=== PATIENT | female | born 1975 | race Caucasian/White ===

== ENCOUNTER 2017-02-03 17:36 | Emergency (ER) | payer SELFPAY ==
[~2017-02-03] VITALS: Ht 154.9 cm; Wt 109.0 kg
[~2017-02-03 17:36] MED LIST: ADVAIR 100-501 EACH IH; ADVAIR 100/501 DISK IH; ADVIL,NUPRIN,M200 MG PO; ALBUTEROL SULF8.5 GM IH; ALBUTEROL17 GM IH; ALPRAZOLAM0.25 MG PO; ANAPROX DS550 M1 PO; ASPIR-LOW81 MG PO; BACTRIM,SEPT1 TABLET PO; BENTYL20 MG PO; BENZONATATE100 MG PO; BUSPAR7.5 MG PO; BUSPIRONE HCL10 MG PO; BUTALB-APAP-CA1 EACH PO; CARAFATE100 MG/ML PO; CIPRO500 MG PO; COLACE100 MG PO; DOXYCYCLINE HY100 M3 PO; ERGOCALCIF50000 UNIT PO; ESTRADIOL1 MG PO; FLEXERIL10 MG PO; FLEXERIL5 MG PO; FLOVENT 11120 INHALA IH; FLOVENT 22120 INHALA IH; HYDROCHLOROTH12.5 M1 PO; HYDROCODON-ACE1 EA11 PO; HYDROCODON-ACE1 EAC7 PO; HYZAAR 50-121 TABLET PO; IBU-200200 MG PO; INDOCIN25 MG PO; KEFLEX500 MG PO; KLOR-CON M2020 MEQ PO; LEVAQUIN500 MG PO; LEVAQUIN750 MG PO; LIPITOR10 MG PO; LISINOPRIL10 MG PO; LO LOESTRIN FE1 EACH; LOPRESSOR50 MG PO; LORTAB 5-325 M1 EACH PO; LUNESTA3 MG; LUNESTA3 MG PO; MEDROL DOSEPAK4 MG PO; MELATONIN3 MG PO; METOPROLOL SUCC50 MG PO; MOTRIN600 MG PO; MOTRIN800 MG PO; MUCUS ER600 MG PO; NAPROSYN500 MG PO; NAPROXEN500 MG PO; NEURONTIN300 MG PO; NITROSTAT0.4 MG SL; NORCO 5/3251 TABLET PO; PERCOCET 5-3251 EACH PO; PERCOCET 5/31 TABLET PO; PHENERGAN-CODE120 ML PO; PREDNISONE20 MG PO; PREDNISONE50 MG PO; PRILOSEC20 MG PO; PROVENTIL,2.5 MG/3 M IH; PROVENTIL17 G1 IH; PROZAC20 MG PO; PROZAC40 MG PO; ROBITUSSIN NIG118 ML PO; SAVELLA12.5 MG PO; SAVELLA50 MG PO; TESSALON PERLE100 MG PO; TOPAMAX100 MG PO; TOPAMAX50 MG PO; TOPIRAMATE50 MG PO; TOPROL XL25 MG PO; TORADOL10 MG PO; TYLENOL WITH C1 EACH PO; ULTRAM50 MG PO; VALIUM2 MG PO; VENTOLIN HFA18 GM IH; VICODIN,LORT1 TABLET PO; VITAMIN D PO; VITAMIN D1000 INTUN PO; XANAX2 MG PO; ZOFRAN ODT4 MG PO; ZOFRAN ODT8 MG PO; [UNRECOGNIZED DRUG - OTHER] PO
[2017-02-03] MEDS ORDERED: FLEXERIL10 MG PO (20:48)
[2017-02-03] MEDS ORDERED: ULTRAM50 MG PO (20:48)
[2017-02-03 21:08] VITALS: BP 142/58
== END 2017-02-03 21:09 | disposition home or self-care (01) ==
LOC: EME 17:36
DX: S40.012A Contusion of left shoulder, initial encounter (principal); S39.012A Strain of muscle, fascia and tendon of lower back, initial encounter; M54.2 Cervicalgia; M25.552 Pain in left hip; W20.8XXA Other cause of strike by thrown, projected or falling object, initial encounter; Y92.512 Supermarket, store or market as the place of occurrence of the external cause; I10 Essential (primary) hypertension; Z90.49 Acquired absence of other specified parts of digestive tract; Z79.890 Hormone replacement therapy
CPT/HCPCS: 72040; 72100; 99281; 99283; J1885

== ENCOUNTER 2017-07-22 17:40 | Inpatient (IN) | payer BC ==
[~2017-07-22] VITALS: Ht 154.9 cm; Wt 11.7 kg
[2017-07-22 19:42] LABS: HEMATOCRIT 38.6 % (36.0-46.0); MCH 28.6 PG (29.0-34.0); MCHC 32.1 G/DL (30.0-36.0); MCV 89.1 FL (83-99); MEAN PLAT.VOLUME 9.8 uM^3 (9.5-12.4); PLATELET COUNT 154 K/uL (156-360); RBC DIS.WIDTH-CV 12.7 % (11.8-14.6); RBC DIS.WIDTH-SD 41.1 % (39-53); RED BLOOD COUNT 4.33 M/uL (3.80-5.20); WHITE BLOOD COUNT 6.6 K/uL (4.1-10.2)
[2017-07-22 19:49] LABS: CHLORIDE 106 mEq/L (99-109); POTASSIUM 3.8 mEq/L (3.7-5.4); SODIUM 140 mEq/L (136-147)
[2017-07-22 19:51] LABS: GLUCOSE 93 mg/dL (70-99)
[2017-07-22 19:52] LABS: ANION GAP 8 MEQ/L (2-14)
[2017-07-22 19:55] LABS: GFR ESTIMATE (CALCULATED) 52 mL/min/; UREA NITROGEN (BUN) 16 mg/dL (9-23)
[2017-07-22 21:59] LABS: INTER. NORMALIZED RATIO 1.1; PROTHROMBIN TIME 11.6 SEC (10.2-12.9)
[2017-07-22 22:01] LABS: PTT 32.5 SEC (25-37)
[2017-07-22 22:05] LABS: Estimated Average Glucose 103 mg/dL (70-123); HEMOGLOBIN A1c (GLYCOHEMOGLOB) 5.2 % HGB (Below 5.7)
[2017-07-22 22:12] LABS: TROP-I INTERPRETATION NEGATIVE; TROPONIN-I < 0.01 ng/mL (0.0-0.30)
[2017-07-22 23:00] LABS: HDL CHOLESTEROL 49 MG/DL (Desirable>=50); LDL CHOLESTEROL 104 mg/dL (Desirable<100); NON-HDL CHOLESTEROL 125 mg/dL (Desirable<160); TOTAL CHOLESTEROL 174 mg/dL (Desirable<200); TRIGLYCERIDES 103 MG/DL (Normal: <150)
[2017-07-23 07:16] LABS: HEMATOCRIT 36.1 % (36.0-46.0); MCH 28.5 PG (29.0-34.0); MCHC 32.4 G/DL (30.0-36.0); MCV 87.8 FL (83-99); MEAN PLAT.VOLUME 9.6 uM^3 (9.5-12.4); PLATELET COUNT 117 K/uL (156-360); RBC DIS.WIDTH-CV 12.7 % (11.8-14.6); RBC DIS.WIDTH-SD 40.1 % (39-53); RED BLOOD COUNT 4.11 M/uL (3.80-5.20); WHITE BLOOD COUNT 5.8 K/uL (4.1-10.2)
[2017-07-23 07:43] LABS: ANION GAP 9 MEQ/L (2-14); CHLORIDE 111 MEQ/L (99-109); SAMPLE HEMOLYSIS CHECK 0; SAMPLE ICTERIC CHECK 0; SAMPLE LIPEMIA CHECK 0; SODIUM 141 MEQ/L (136-147); TOTAL BILIRUBIN 0.4 MG/DL (0.0-1.0)
[2017-07-23 07:49] LABS: ALKALINE PHOSPHATASE 76 IU/L (3-129); GFR ESTIMATE (CALCULATED) > 59 mL/min/; GLUCOSE 86 mg/dL (70-99); UREA NITROGEN (BUN) 13 mg/dL (9-23)
[2017-07-23 08:15] VITALS: BP 125/74
[2017-07-23] MEDS ORDERED: PROZAC20 MG PO (13:15)
[2017-07-23 15:51] VITALS: BP 137/76
[2017-07-23 19:40] VITALS: BP 126/67
[2017-07-23 23:22] VITALS: BP 122/69
[2017-07-24 03:37] VITALS: BP 124/54
[2017-07-24 06:58] LABS: EOSINOPHIL (%) 4.6 % (0-5); EOSINOPHIL COUNT 0.2 K/uL (0-0.3); HEMATOCRIT 34.5 % (36.0-46.0); IMMATURE GRANULOCYTE (%) 0.2 % (0.0-0.7); LYMPHOCYTE COUNT 2.1 K/uL (1.0-2.8); MCH 29.8 PG (29.0-34.0); MCHC 33.3 G/DL (30.0-36.0); MCV 89.4 FL (83-99); MEAN PLAT.VOLUME 9.9 uM^3 (9.5-12.4); MONOCYTE (%) 6.5 % (3-12); MONOCYTE COUNT 0.3 K/uL (0-0.8); NEUTROPHIL (%) 43.8 % (45-76); PLATELET COUNT 127 K/uL (156-360); RBC DIS.WIDTH-CV 12.9 % (11.8-14.6); RED BLOOD COUNT 3.86 M/uL (3.80-5.20); WHITE BLOOD COUNT 4.6 K/uL (4.1-10.2)
[2017-07-24 07:02] LABS: ANION GAP 7 MEQ/L (2-14); CHLORIDE 109 MEQ/L (99-109); GFR ESTIMATE (CALCULATED) 58 mL/min/; GLUCOSE 90 mg/dL (70-99); POTASSIUM 4.2 MEQ/L (3.7-5.4); SAMPLE HEMOLYSIS CHECK 0; SAMPLE ICTERIC CHECK 0; SAMPLE LIPEMIA CHECK 0; SODIUM 140 MEQ/L (136-147); UREA NITROGEN (BUN) 15 mg/dL (9-23)
[2017-07-24 07:13] VITALS: BP 134/67
[2017-07-24] MEDS ORDERED: SUMATRIPTAN SU100 MG PO (13:36)
[2017-07-24] MEDS ORDERED: TOPIRAMATE100 MG PO (13:36)
[2017-07-24] MEDS ORDERED: METOPROLOL SUCC25 MG PO (13:36)
== END 2017-07-24 16:12 | disposition home or self-care (01) | DRG 103 ==
LOC: RME 17:40 → EME 17:40 → EDOF 07-23 04:49 → ENRESERV 07-23 04:58 → 5SOUTH 07-23 05:23 → EDOF 07-23 05:23 → ENRESERV 07-23 05:25 → 5SOUTH 07-23 07:18
PROVIDERS: Hospitalist; Internal Medicine; Physician Assistant
DX: G43.909 Migraine, unspecified, not intractable, without status migrainosus (principal); I10 Essential (primary) hypertension; M79.7 Fibromyalgia; E66.01 Morbid (severe) obesity due to excess calories; R53.1 Weakness; J45.909 Unspecified asthma, uncomplicated; F41.9 Anxiety disorder, unspecified; R29.704 NIHSS score 4; Z68.42 Body mass index [BMI] 45.0-49.9, adult; Z86.73 Personal history of transient ischemic attack (TIA), and cerebral infarction without residual deficits
CPT/HCPCS: 70450; 70490; 70496; 70498; 70551; 71020; 80048; 80053; 80061; 81003; 83036; 84484; 85025; 85027; 85610; 85730; 93005; 93306; 99281; 99285; J1200; J1644; J2270; J2405; J2765; J3010; J7030

== ENCOUNTER 2017-11-03 17:35 | Emergency (ER) | payer BC ==
[~2017-11-03] VITALS: Ht 154.9 cm; Wt 111.4 kg
[~2017-11-03 17:35] MED LIST changes: +METOPROLOL SUCC25 MG PO; +SUMATRIPTAN SU100 MG PO; +TOPIRAMATE100 MG PO
[2017-11-03 18:20] LABS: HEMATOCRIT 39.7 % (36.0-46.0); HEMOGLOBIN 13.2 G/DL (11.9-15.5); MCH 28.7 PG (29.0-34.0); MCHC 33.2 G/DL (30.0-36.0); MCV 86.3 FL (83-99); PLATELET COUNT 159 K/uL (156-360); RBC DIS.WIDTH-CV 12.9 % (11.8-14.6); RBC DIS.WIDTH-SD 40.5 % (39-53); WHITE BLOOD COUNT 8.7 K/uL (4.1-10.2)
[2017-11-03 18:28] LABS: ALBUMIN 4.3 g/dL (3.2-4.8)
[2017-11-03 18:29] LABS: CHLORIDE 108 mEq/L (99-109); POTASSIUM 3.7 mEq/L (3.7-5.4); SODIUM 140 mEq/L (136-147)
[2017-11-03 18:31] LABS: GLUCOSE 93 mg/dL (70-99); TOTAL PROTEIN 7.8 g/dL (6.4-8.3)
[2017-11-03 18:33] LABS: TOTAL BILIRUBIN 0.3 mg/dL (0.0-1.0)
[2017-11-03 18:34] LABS: ALKALINE PHOSPHATASE 88 IU/L (3-129)
[2017-11-03 18:35] LABS: GFR ESTIMATE (CALCULATED) > 59 mL/min/
[2017-11-03 18:36] LABS: AST (GOT) 10 IU/L (2-34); UREA NITROGEN (BUN) 23 mg/dL (9-23)
[2017-11-03 18:37] LABS: ALT (GPT) 10 IU/L (3-49)
[2017-11-03 20:10] LABS: APPEARANCE CLOUDY ((CLEAR)); BILIRUBIN NEGATIVE; BLOOD SMALL; COLOR YELLOW ((YELLOW)); GLUCOSE (STRIP) NEGATIVE; KETONES NEGATIVE; LEUKOCYTES LARGE; NITRITE NEGATIVE; PROTEIN (STRIP) 100; SPECIFIC GRAVITY 1.034 (1.000-1.030); UROBILINOGEN 0.2 MG/DL (0.2-1.0)
[2017-11-03 20:35] LABS: BACTERIA 3+ /HPF; EPITHELIAL CELLS 3+ /HPF; MUCUS NONE SEEN /LPF; UCUL ADDED? YES; WHITE BLOOD CELLS TNTC /HPF (0-5)
[2017-11-03] MEDS ORDERED: KEFLEX500 MG PO (23:29)
[2017-11-04 00:25] VITALS: BP 119/89
== END 2017-11-04 00:25 | disposition home or self-care (01) ==
LOC: RME 17:35 → EME 17:35 → RME 11-04 00:25
DX: N12 Tubulo-interstitial nephritis, not specified as acute or chronic (principal); I10 Essential (primary) hypertension; J45.909 Unspecified asthma, uncomplicated; M79.7 Fibromyalgia; F32.9 Major depressive disorder, single episode, unspecified; Z88.6 Allergy status to analgesic agent
CPT/HCPCS: 80053; 81003; 84702; 85027; 87077; 87086; 87186

== ENCOUNTER 2018-02-04 22:33 | Emergency (ER) | payer OTHER ==
[~2018-02-04] VITALS: Ht 154.9 cm; Wt 114.4 kg
[2018-02-04 23:12] LABS: HEMATOCRIT 39.7 % (36.0-46.0); MCH 28.8 PG (29.0-34.0); MCHC 32.7 G/DL (30.0-36.0); MCV 87.8 FL (83-99); PLATELET COUNT 159 K/uL (156-360); RBC DIS.WIDTH-CV 13.5 % (11.8-14.6); RBC DIS.WIDTH-SD 43.8 % (39-53); RED BLOOD COUNT 4.52 M/uL (3.80-5.20); WHITE BLOOD COUNT 6.9 K/uL (4.1-10.2)
[2018-02-04 23:25] LABS: ALBUMIN 4.3 g/dL (3.2-4.8); CHLORIDE 109 mEq/L (99-109); POTASSIUM 3.9 mEq/L (3.7-5.4); SODIUM 141 mEq/L (136-147)
[2018-02-04 23:27] LABS: GLUCOSE 105 mg/dL (70-99); TOTAL PROTEIN 7.8 g/dL (6.4-8.3)
[2018-02-04 23:29] LABS: TOTAL BILIRUBIN 0.4 mg/dL (0.0-1.0)
[2018-02-04 23:30] LABS: QUANTITATIVE HCG 5.4 MIU/ML
[2018-02-04 23:31] LABS: ALKALINE PHOSPHATASE 94 IU/L (3-129); GFR ESTIMATE (CALCULATED) > 59 mL/min/
[2018-02-04 23:32] LABS: UREA NITROGEN (BUN) 21 mg/dL (9-23)
[2018-02-04 23:33] LABS: AST (GOT) 14 IU/L (2-34)
[2018-02-04 23:34] LABS: ALT (GPT) 10 IU/L (3-49)
[2018-02-04 23:43] LABS: APPEARANCE CLOUDY ((CLEAR)); BILIRUBIN NEGATIVE; BLOOD MODERATE; COLOR YELLOW ((YELLOW)); GLUCOSE (STRIP) NEGATIVE; KETONES NEGATIVE; LEUKOCYTES LARGE; NITRITE NEGATIVE; PROTEIN (STRIP) 30; SPECIFIC GRAVITY 1.028 (1.000-1.030); UROBILINOGEN 0.2 MG/DL (0.2-1.0)
[2018-02-05] LABS: BACTERIA RARE /HPF; EPITHELIAL CELLS 1+ /HPF; MUCUS TRACE /LPF; RED BLOOD CELLS TNTC /HPF (0-5); UCUL ADDED? YES; WHITE BLOOD CELLS TNTC /HPF (0-5)
[2018-02-05] MEDS ORDERED: KEFLEX500 MG PO (06:18)
[2018-02-05] MEDS ORDERED: NORCO 5/3251 TABLET PO (06:18)
[2018-02-05 06:53] VITALS: BP 110/78
== END 2018-02-05 06:55 | disposition home or self-care (01) ==
LOC: EXP 22:33 → EME 22:33 → EXP 02-05 06:55
DX: N30.01 Acute cystitis with hematuria (principal); M79.7 Fibromyalgia; J45.909 Unspecified asthma, uncomplicated; I10 Essential (primary) hypertension; F32.9 Major depressive disorder, single episode, unspecified; Z90.49 Acquired absence of other specified parts of digestive tract; Z90.710 Acquired absence of both cervix and uterus; Z88.6 Allergy status to analgesic agent
CPT/HCPCS: 74177; 80053; 81003; 83690; 84702; 85027; 87086; 99281; 99284; J0696; J2405; J3010; J7030

== ENCOUNTER 2018-03-25 11:23 | Emergency (ER) | payer OTHER ==
[~2018-03-25] VITALS: Ht 154.9 cm; Wt 97.9 kg
[2018-03-25 11:43] LABS: HEMATOCRIT 39.2 % (36.0-46.0); HEMOGLOBIN 13.1 G/DL (11.9-15.5); MCHC 33.4 G/DL (30.0-36.0); MCV 86.7 FL (83-99); PLATELET COUNT 151 K/uL (156-360); RBC DIS.WIDTH-CV 12.9 % (11.8-14.6); RBC DIS.WIDTH-SD 40.9 % (39-53); RED BLOOD COUNT 4.52 M/uL (3.80-5.20); WHITE BLOOD COUNT 5.9 K/uL (4.1-10.2)
[2018-03-25 11:53] LABS: ALBUMIN 4.1 g/dL (3.2-4.8); CHLORIDE 107 mEq/L (99-109); POTASSIUM 4.1 mEq/L (3.7-5.4); SODIUM 140 mEq/L (136-147)
[2018-03-25 11:56] LABS: GLUCOSE 105 mg/dL (70-99); TOTAL PROTEIN 7.5 g/dL (6.4-8.3)
[2018-03-25 11:58] LABS: TOTAL BILIRUBIN 0.3 mg/dL (0.0-1.0)
[2018-03-25 11:59] LABS: ALKALINE PHOSPHATASE 98 IU/L (3-129); GFR ESTIMATE (CALCULATED) > 59 mL/min/
[2018-03-25 12:00] LABS: UREA NITROGEN (BUN) 10 mg/dL (9-23)
[2018-03-25 12:01] LABS: AST (GOT) 10 IU/L (2-34)
[2018-03-25 12:02] LABS: ALT (GPT) 9 IU/L (3-49)
[2018-03-25 12:09] LABS: APPEARANCE SL.HAZY ((CLEAR)); BILIRUBIN NEGATIVE; BLOOD LARGE; COLOR YELLOW ((YELLOW)); GLUCOSE (STRIP) NEGATIVE; KETONES NEGATIVE; LEUKOCYTES LARGE; NITRITE NEGATIVE; PROTEIN (STRIP) NEGATIVE; SPECIFIC GRAVITY 1.003 (1.000-1.030); UROBILINOGEN 0.2 MG/DL (0.2-1.0)
[2018-03-25 12:10] LABS: QUANTITATIVE HCG 5.7 MIU/ML
[2018-03-25] MEDS ORDERED: PROPRANOLOL HCL10 MG PO (12:59)
[2018-03-25] MEDS ORDERED: TOPAMAX200 MG PO (12:59)
[2018-03-25 13:31] LABS: EPITHELIAL CELLS 2+ /HPF; MUCUS TRACE /LPF
[2018-03-25 13:32] LABS: BACTERIA 1+ /HPF; RED BLOOD CELLS 0-5 /HPF (0-5); UCUL ADDED? YES; WHITE BLOOD CELLS 30-40 /HPF (0-5)
[2018-03-25] MEDS ORDERED: FLAGYL500 MG PO (15:10)
[2018-03-25] MEDS ORDERED: TRAMADOL HCL50 MG PO (15:11)
[2018-03-25] MEDS ORDERED: ZOFRAN4 MG PO (15:11)
[2018-03-25 15:15] LABS: SOURCE SWAB
[2018-03-25 15:35] VITALS: BP 145/74
== END 2018-03-25 15:36 | disposition home or self-care (01) ==
LOC: EME 11:23
PROVIDERS: Physician Assistant
DX: A59.01 Trichomonal vulvovaginitis (principal); N39.0 Urinary tract infection, site not specified; R10.2 Pelvic and perineal pain; Z90.710 Acquired absence of both cervix and uterus; Z90.49 Acquired absence of other specified parts of digestive tract; I10 Essential (primary) hypertension; Z79.890 Hormone replacement therapy
CPT/HCPCS: 74176; 80053; 81003; 84702; 85027; 87086; 87210; 87491; 87591; 99281; 99285; J0696